=== PATIENT | male | born 1980 | race Caucasian/White ===

== ENCOUNTER 2016-09-05 02:39 | Emergency (ER) | payer SELFPAY ==
[2016-09-05 04:49] LABS: BASOPHIL 0.3 % (0-2); EOSINOPHIL 0.8 % (0-5); HCT 47.1 % (42.0-52.0); HGB 16.9 g/dl (13.2-18.0); LYMPHOCYTE 26.9 % (15-48); MCH 31.3 pg (25.0-31.0); MCHC 35.9 g/dL (32.0-36.0); MCV 87.2 fL (78.0-100.0); MONOCYTE 10.8 % (0-12); NEUTROPHIL 61.2 % (41-80); PLT 231 K/uL (150-400); RDW 12.9 % (11.5-14.0); WBC 6.6 K/uL (4.0-10.5)
[2016-09-05 05:08] LABS: ALBUMIN 4.9 g/dL (3.5-5.0); BILIRUBIN - TOTAL 1.2 mg/dL (0.1-1.0); CREATININE 0.6 mg/dL (0.7-1.2); GLOBULIN (CALCULATION) 3.3 g/dL (2.2-4.2); POTASSIUM 3.9 mmol/L (3.5-5.1); TOTAL PROTEIN 8.2 g/dL (6.4-8.3); TROPONIN T < 0.010 ng/mL
[2016-09-05 05:10] LABS: CKMB 9.24 ng/mL (0.97-4.94)
[2016-09-05 06:33] LABS: TROPONIN T < 0.010 ng/mL
[2016-09-05 06:35] LABS: CKMB 7.87 ng/mL (0.97-4.94)
== END 2016-09-05 07:05 | disposition home or self-care (01) ==
LOC: FER 02:39
PROVIDERS: Emergency Medicine Emergency Medical Services
DX: R07.89 Other chest pain (principal); R06.02 Shortness of breath; I44.5 Left posterior fascicular block; F17.210 Nicotine dependence, cigarettes, uncomplicated; Z87.09 Personal history of other diseases of the respiratory system
CPT/HCPCS: 36415; 71010; 80053; 82550; 82553; 84484; 85025; 85379; 86617; 93005; J1100; J1885

== ENCOUNTER 2020-05-07 16:08 | Emergency (ER) | payer SELFPAY ==
[2020-05-07 19:41] LABS: EOSINOPHIL 1.2 % (0-5); HCT 45.2 % (42.0-52.0); HGB 15.3 g/dl (13.2-18.0); LYMPHOCYTE 21.3 % (15-48); MCH 32.8 pg (25.0-31.0); MCHC 33.8 g/dL (32.0-36.0); MCV 96.8 fL (78.0-100.0); MONOCYTE 17.4 % (0-12); MPV 9.7 fL (6.0-9.5); NEUTROPHIL 58.7 % (41-80); NRBC 0; PLT 138 K/uL (150-400); RBC 4.67 M/uL (4.70-6.00); RDW 13.1 % (11.5-14.0); WBC 4.9 K/uL (4.0-10.5)
[2020-05-07 19:53] LABS: BUN/CREAT RATIO (CALC) 13.2 RATIO; CREATININE 0.53 mg/dL (0.67-1.17); POTASSIUM 3.9 mmol/L (3.5-5.1)
[2020-05-07] MEDS ORDERED: ATIVAN0.5 MG PO (20:47)
== END 2020-05-07 21:45 | disposition home or self-care (01) ==
LOC: FER 16:08
PROVIDERS: Nurse Practitioner Family
DX: F10.20 Alcohol dependence, uncomplicated (principal)
CPT/HCPCS: 36415; 80048; 85025; J1100; J7030